=== PATIENT | male | born 1980 | race Caucasian/White ===

== ENCOUNTER 2021-02-16 21:14 | Emergency (ER) | payer OTHER ==
[2021-02-16] MEDS ORDERED: VIBRAMYCIN100 MG PO (22:38)
== END 2021-02-16 22:50 | disposition home or self-care (01) ==
LOC: FER 21:14
DX: S50.862A Insect bite (nonvenomous) of left forearm, initial encounter (principal); F17.200 Nicotine dependence, unspecified, uncomplicated; Z88.0 Allergy status to penicillin; W57.XXXA Bitten or stung by nonvenomous insect and other nonvenomous arthropods, initial encounter
CPT/HCPCS: 99282

== ENCOUNTER 2021-09-04 12:47 | Emergency (ER) | payer OTHER ==
[~2021-09-04 12:47] MED LIST: VIBRAMYCIN100 MG PO
[2021-09-04] MEDS ORDERED: NAPROXEN500 MG PO (13:49)
== END 2021-09-04 13:59 | disposition home or self-care (01) ==
LOC: FER 12:47
DX: M77.8 Other enthesopathies, not elsewhere classified (principal); R00.0 Tachycardia, unspecified; F17.200 Nicotine dependence, unspecified, uncomplicated
CPT/HCPCS: 73030

== ENCOUNTER 2022-06-12 17:38 | Emergency (ER) | payer OTHER ==
[~2022-06-12 17:38] MED LIST changes: +NAPROXEN500 MG PO
[2022-06-12 18:25] LABS: BASOPHIL 0.9 % (0-2); EOSINOPHIL 7.9 % (0-5); HCT 42.6 % (42.0-52.0); HGB 14.7 g/dl (13.2-18.0); LYMPHOCYTE 23.1 % (15-48); MCH 31.5 pg (25.0-31.0); MCHC 34.5 g/dL (32.0-36.0); MCV 91.2 fL (78.0-100.0); MONOCYTE 10.2 % (0-12); MPV 9.9 fL (6.0-9.5); NEUTROPHIL 57.5 % (41-80); NRBC 0; PLT 172 K/uL (150-400); RBC 4.67 M/uL (4.70-6.00); RDW 13.2 % (11.5-14.0); WBC 8.5 K/uL (4.0-10.5)
[2022-06-12 18:59] LABS: ALBUMIN 3.7 g/dL (3.4-5.0); BILIRUBIN - TOTAL 0.6 mg/dL (0.2-1.0); BUN/CREAT RATIO (CALC) 13.4 RATIO; CREATININE 0.97 mg/dL (0.67-1.17); GLOBULIN (CALCULATION) 3.7 g/dL; POTASSIUM 3.6 mmol/L (3.5-5.1); TOTAL PROTEIN 7.4 g/dL (6.4-8.2)
[2022-06-12] MEDS ORDERED: ELIQUIS5 MG PO (21:00)
== END 2022-06-12 21:20 | disposition home or self-care (01) ==
LOC: FER 17:38
PROVIDERS: Emergency Medicine
DX: I26.99 Other pulmonary embolism without acute cor pulmonale (principal); F17.200 Nicotine dependence, unspecified, uncomplicated
CPT/HCPCS: 36415; 71045; 71275; 80053; 84484; 85025; 85379; 93005; J1650; Q9967

== ENCOUNTER 2022-06-13 07:47 | Emergency (ER) | payer OTHER ==
[~2022-06-13 07:47] MED LIST changes: +ELIQUIS5 MG PO
[2022-06-13 08:07] LABS: BASOPHIL 0.9 % (0-2); EOSINOPHIL 9.4 % (0-5); HCT 44.5 % (42.0-52.0); HGB 14.9 g/dl (13.2-18.0); LYMPHOCYTE 29.4 % (15-48); MCH 31.1 pg (25.0-31.0); MCHC 33.5 g/dL (32.0-36.0); MCV 92.9 fL (78.0-100.0); MONOCYTE 10.1 % (0-12); MPV 9.9 fL (6.0-9.5); NRBC 0; PLT 167 K/uL (150-400); RBC 4.79 M/uL (4.70-6.00); RDW 13.2 % (11.5-14.0); WBC 8.1 K/uL (4.0-10.5)
[2022-06-13 08:47] LABS: ALBUMIN 3.8 g/dL (3.4-5.0); BILIRUBIN - TOTAL 0.5 mg/dL (0.2-1.0); BUN/CREAT RATIO (CALC) 15.2 RATIO; CREATININE 0.99 mg/dL (0.67-1.17); GLOBULIN (CALCULATION) 3.7 g/dL; POTASSIUM 3.7 mmol/L (3.5-5.1); TOTAL PROTEIN 7.5 g/dL (6.4-8.2)
== END 2022-06-13 10:33 | disposition home or self-care (01) ==
LOC: FER 07:47
PROVIDERS: Emergency Medicine
DX: I26.99 Other pulmonary embolism without acute cor pulmonale (principal); I82.402 Acute embolism and thrombosis of unspecified deep veins of left lower extremity; R00.0 Tachycardia, unspecified; Z28.310 Unvaccinated for COVID-19
CPT/HCPCS: 36415; 80053; 84484; 85025; 93005; 93970; J1650